=== PATIENT | female | born 1965 | race Caucasian/White ===

== ENCOUNTER 2020-09-04 17:27 | Inpatient (IN) | payer MEDICAID ==
[~2020-09-04] VITALS: Ht 157.5 cm; Wt 61.0 kg
[2020-09-04] MEDS ORDERED: BISACODYL 10 MG SUPP PR PRN (18:00)
[2020-09-04] MEDS ORDERED: POLYETHYLENE GLYCOL 17 GM PACKET PO PRN (18:00)
[2020-09-04] MEDS ORDERED: DOCUSATE 100 MG CAPSULE PO PRN (18:00)
[2020-09-04] MEDS ORDERED: ONDANSETRON ODT 4 MG PO PRN (18:00)
[2020-09-04] MEDS ORDERED: TRAZODONE 50MG TABLET PO SCH (21:00)
[2020-09-04] MEDS ORDERED: PLEASE ENTER HEIGHT AND WEIGHT MC SCH (21:30)
[2020-09-04] MEDS ORDERED: TRAZODONE 50MG TABLET ONE (21:45)
[2020-09-04] MEDS ORDERED: QUETIAPINE 25MG TABLET ONE (21:45)
[2020-09-04] MEDS: QUETIAPINE 25MG TABLET PO SCH (21:55)
[2020-09-04 22:30] LABS: MICROSCOPIC NOT IND
[2020-09-05 02:14] VITALS: BP 149/92
[2020-09-05] MEDS ORDERED: CETI-222 PO (03:19)
[2020-09-05] MEDS ORDERED: FERR325T5 PO (03:19)
[2020-09-05] MEDS ORDERED: AMLO-150 PO (03:19)
[2020-09-05] MEDS ORDERED: PROP10TA51 PO (03:19)
[2020-09-05] MEDS ORDERED: ERGO500017 PO (03:19)
[2020-09-05] MEDS ORDERED: METH-640 PO (03:19)
[2020-09-05] MEDS ORDERED: BUSP5TAB2 PO (03:19)
[2020-09-05] MEDS ORDERED: ATOR20TA86 PO (03:19)
[2020-09-05] MEDS ORDERED: BENZ100C PO (03:19)
[2020-09-05] MEDS ORDERED: LISI20TA21 PO (03:19)
[2020-09-05 06:24] LABS: BASOPHILS % (AUTO) 1 % (0-1); EOSINOPHILS % (AUTO) 4 % (1-7); LYMPHOCYTES % (AUTO) 17 % (22-44); MEAN CORPUSCULAR HEMOGLOBIN 27.7 pg (27.0-34.8); MEAN CORPUSCULAR HGB CONC 33.3 g/dL (32.4-35.8); MEAN PLATELET VOLUME 6.4 fL (7.4-10.4); MONOCYTES % (AUTO) 9 % (2-9); NEUTROPHILS % (AUTO) 69 % (42-75); PLATELET COUNT 556 x10^3/uL (130-400); RED BLOOD COUNT 3.52 x10^6/uL (3.82-5.3); RED CELL DISTRIBUTION WIDTH 14.8 % (9.6-15.2)
[2020-09-05 06:29] LABS: MD NO
[2020-09-05 06:37] LABS: CALCIUM 8.8 mg/dL (8.5-10.1)
[2020-09-05 06:49] LABS: ALANINE AMINOTRANSFERASE 16 U/L (12-78); ALBUMIN 2.5 g/dL (3.4-5.0); ALKALINE PHOSPHATASE 92 U/L (45-117); BILIRUBIN,TOTAL 0.2 mg/dL (0.2-1.0); CHOL/HDL RATIO 2.4; CHOLESTEROL, TOTAL 147 mg/dL (140-239); CREATININE 0.53 mg/dL (0.55-1.02); FREE T4 (FREE THYROXINE) 0.69 ng/dL (0.76-1.46); HDL CHOL % 42 % (28-40); HDL CHOLESTEROL (DIRECT) 62 mg/dL (40-60); LDL CHOLESTEROL,CALCULATED 62 mg/dL (54-169); TOTAL PROTEIN 6.8 g/dL (6.4-8.2); TRIGLYCERIDES 113 mg/dL (50-200); VLDL CHOLESTEROL 23 mg/dL (0-25)
[2020-09-05 07:13] LABS: ANION GAP 3 mmol/L (5-15); CHLORIDE 102 mmol/L (98-107)
[2020-09-05 07:30] VITALS: BP 126/75
[2020-09-05] MEDS: SERTRALINE 50MG TABLET PO SCH (08:00)
[2020-09-05] MEDS: FLUTICASONE/VILANTEROL 200-25MCG/INH INH SCH (08:01)
[2020-09-05] MEDS: TIOTROPIUM BROMIDE 18 MCG/INH INH SCH (08:01)
[2020-09-05] MEDS: ACETAMINOPHEN 325 MG TABLET PO PRN (18:24)
[2020-09-05 19:44] VITALS: BP 134/84
[2020-09-05 19:52] LABS: % IRON SATURATION 10 % (20-55); IRON LEVEL 31 mcg/dL (50-170); TOTAL IRON BINDING CAPACITY 319 mcg/dL (250-450)
[2020-09-05 19:54] LABS: TROPONIN I < 0.015 ng/mL (0.000-0.045)
[2020-09-05] MEDS ORDERED: ALBUTEROL HFA 90 MCG/SPRAY INH PRN (20:30)
[2020-09-05] MEDS: QUETIAPINE 25MG TABLET PO SCH (20:35)
[2020-09-05] MEDS: TRAZODONE 50MG TABLET PO SCH (20:35)
[2020-09-06 07:39] VITALS: BP 130/72
[2020-09-06] MEDS: SERTRALINE 50MG TABLET PO SCH (08:06)
[2020-09-06] MEDS: ATORVASTATIN 40 MG TABLET PO SCH (08:06)
[2020-09-06] MEDS: AMLODIPINE 10 MG TAB PO SCH (08:06)
[2020-09-06] MEDS: FLUTICASONE/VILANTEROL 200-25MCG/INH INH SCH (08:08)
[2020-09-06] MEDS: TIOTROPIUM BROMIDE 18 MCG/INH INH SCH (08:08)
[2020-09-06] MEDS: LISINOPRIL 20 MG TABLET PO SCH (08:10)
[2020-09-06] MEDS: LIDODERM 5% PATCH TD SCH (14:57)
[2020-09-06 19:41] VITALS: BP 130/84
[2020-09-06] MEDS: QUETIAPINE 25MG TABLET PO SCH (20:13)
[2020-09-06] MEDS: TRAZODONE 50MG TABLET PO SCH (20:14)
[2020-09-07 07:38] VITALS: BP 145/89
[2020-09-07] MEDS: FLUTICASONE/VILANTEROL 200-25MCG/INH INH SCH (07:54)
[2020-09-07] MEDS: TIOTROPIUM BROMIDE 18 MCG/INH INH SCH (07:54)
[2020-09-07] MEDS: AMLODIPINE 10 MG TAB PO SCH (07:55)
[2020-09-07] MEDS: LISINOPRIL 20 MG TABLET PO SCH (07:55)
[2020-09-07] MEDS: ATORVASTATIN 40 MG TABLET PO SCH (07:55)
[2020-09-07] MEDS: FERROUS SULFATE 325 MG TABLET PO SCH (07:55)
[2020-09-07] MEDS: SERTRALINE 50MG TABLET PO SCH (07:55)
[2020-09-07] MEDS: ACETAMINOPHEN 325 MG TABLET PO PRN (09:32)
[2020-09-07] MEDS: LIDODERM 5% PATCH TD SCH (13:33)
[2020-09-07] MEDS: LIDODERM REMOVE PATCH NOTE XX SCH (15:00)
[2020-09-07 19:50] VITALS: BP 127/80
[2020-09-07] MEDS: TRAZODONE 50MG TABLET PO SCH (20:27)
[2020-09-07] MEDS: QUETIAPINE 25MG TABLET PO SCH (20:27)
[2020-09-08] MEDS: LIDODERM REMOVE PATCH NOTE XX SCH ×2 (03:00→15:00)
[2020-09-08 07:31] VITALS: BP 125/81
[2020-09-08] MEDS: AMLODIPINE 10 MG TAB PO SCH (08:24)
[2020-09-08] MEDS: LISINOPRIL 20 MG TABLET PO SCH (08:24)
[2020-09-08] MEDS: ATORVASTATIN 40 MG TABLET PO SCH (08:24)
[2020-09-08] MEDS: SERTRALINE 50MG TABLET PO SCH (08:24)
[2020-09-08] MEDS: TIOTROPIUM BROMIDE 18 MCG/INH INH SCH (08:25)
[2020-09-08] MEDS: FLUTICASONE/VILANTEROL 200-25MCG/INH INH SCH (08:25)
[2020-09-08] MEDS: LIDODERM 5% PATCH TD SCH (16:16)
[2020-09-08] MEDS ORDERED: QUETIAPINE 25MG TABLET PO ONE (17:30)
[2020-09-08 19:40] VITALS: BP 113/76
[2020-09-08] MEDS: TRAZODONE 50MG TABLET PO SCH (20:41)
[2020-09-08] MEDS: QUETIAPINE 25MG TABLET PO SCH (20:42)
[2020-09-09] MEDS: LIDODERM REMOVE PATCH NOTE XX SCH ×2 (02:28→14:23)
[2020-09-09 07:30] VITALS: BP 122/82
[2020-09-09] MEDS: TIOTROPIUM BROMIDE 18 MCG/INH INH SCH (09:23)
[2020-09-09] MEDS: SERTRALINE 50MG TABLET PO SCH (09:23)
[2020-09-09] MEDS: FLUTICASONE/VILANTEROL 200-25MCG/INH INH SCH (09:23)
[2020-09-09] MEDS: LISINOPRIL 20 MG TABLET PO SCH (09:23)
[2020-09-09] MEDS: ATORVASTATIN 40 MG TABLET PO SCH (09:23)
[2020-09-09] MEDS: AMLODIPINE 10 MG TAB PO SCH (09:23)
[2020-09-09] MEDS: ACETAMINOPHEN 325 MG TABLET PO PRN ×2 (09:29→20:34)
[2020-09-09] MEDS: FERROUS SULFATE 325 MG TABLET PO SCH (09:29)
[2020-09-09] MEDS ORDERED: hydrOXyzine 50MG TABLET ONE (09:41)
[2020-09-09] MEDS: HYDROXYZINE PAMOATE 50MG CAP PO PRN ×2 (09:47→20:34)
[2020-09-09] MEDS: LIDODERM 5% PATCH TD SCH (14:20)
[2020-09-09 19:42] VITALS: BP 125/79
[2020-09-09] MEDS: QUETIAPINE 25MG TABLET PO SCH (20:34)
[2020-09-09] MEDS: TRAZODONE 50MG TABLET PO SCH (20:34)
[2020-09-10] MEDS: LIDODERM REMOVE PATCH NOTE XX SCH ×2 (03:00→15:00)
[2020-09-10 07:41] VITALS: BP 113/72
[2020-09-10] MEDS: FLUTICASONE/VILANTEROL 200-25MCG/INH INH SCH (08:41)
[2020-09-10] MEDS: LISINOPRIL 20 MG TABLET PO SCH (08:41)
[2020-09-10] MEDS: AMLODIPINE 10 MG TAB PO SCH (08:41)
[2020-09-10] MEDS: ATORVASTATIN 40 MG TABLET PO SCH (08:41)
[2020-09-10] MEDS: TIOTROPIUM BROMIDE 18 MCG/INH INH SCH ×2 (08:41→09:29)
[2020-09-10] MEDS: SERTRALINE 50MG TABLET PO SCH (08:42)
[2020-09-10] MEDS: ACETAMINOPHEN 325 MG TABLET PO PRN ×2 (09:30→14:54)
[2020-09-10] MEDS: HYDROXYZINE PAMOATE 50MG CAP PO PRN ×2 (09:30→16:28)
[2020-09-10] MEDS: LIDODERM 5% PATCH TD SCH (14:49)
[2020-09-10 19:26] VITALS: BP 124/79
[2020-09-10] MEDS: QUETIAPINE 25MG TABLET PO SCH (20:38)
[2020-09-10] MEDS: TRAZODONE 50MG TABLET PO SCH (20:39)
[2020-09-11] MEDS: LIDODERM REMOVE PATCH NOTE XX SCH (03:37)
[2020-09-11 07:47] VITALS: BP 117/75
[2020-09-11] MEDS: FERROUS SULFATE 325 MG TABLET PO SCH ×2 (08:35→15:30)
[2020-09-11] MEDS: TIOTROPIUM BROMIDE 18 MCG/INH INH SCH (08:35)
[2020-09-11] MEDS: FLUTICASONE/VILANTEROL 200-25MCG/INH INH SCH (08:35)
[2020-09-11] MEDS: ATORVASTATIN 40 MG TABLET PO SCH (08:35)
[2020-09-11] MEDS: SERTRALINE 100MG TABLET PO SCH (08:35)
[2020-09-11] MEDS: AMLODIPINE 10 MG TAB PO SCH (08:35)
[2020-09-11] MEDS: LISINOPRIL 20 MG TABLET PO SCH (08:35)
[2020-09-11] MEDS: HYDROXYZINE PAMOATE 50MG CAP PO PRN ×2 (09:15→20:21)
[2020-09-11] MEDS: ACETAMINOPHEN 325 MG TABLET PO PRN (12:52)
[2020-09-11] MEDS: LIDODERM 5% PATCH TD SCH (13:51)
[2020-09-11 20:09] VITALS: BP 111/70
[2020-09-11] MEDS: QUETIAPINE 25MG TABLET PO SCH (20:20)
[2020-09-11] MEDS: TRAZODONE 50MG TABLET PO SCH (20:21)
[2020-09-12] MEDS: LIDODERM REMOVE PATCH NOTE XX SCH (02:40)
[2020-09-12 07:31] VITALS: BP 100/68
[2020-09-12] MEDS: TIOTROPIUM BROMIDE 18 MCG/INH INH SCH (08:38)
[2020-09-12] MEDS: SERTRALINE 100MG TABLET PO SCH (08:39)
[2020-09-12] MEDS: AMLODIPINE 10 MG TAB PO SCH (08:39)
[2020-09-12] MEDS: FLUTICASONE/VILANTEROL 200-25MCG/INH INH SCH (08:39)
[2020-09-12] MEDS: FERROUS SULFATE 325 MG TABLET PO SCH (08:40)
[2020-09-12] MEDS: ATORVASTATIN 40 MG TABLET PO SCH (08:40)
[2020-09-12] MEDS: LISINOPRIL 20 MG TABLET PO SCH (08:40)
[2020-09-12] MEDS: HYDROXYZINE PAMOATE 50MG CAP PO PRN (09:01)
[2020-09-12] MEDS: ACETAMINOPHEN 325 MG TABLET PO PRN (12:55)
[2020-09-12] MEDS: LIDODERM 5% PATCH TD SCH (14:13)
[2020-09-12] MEDS ORDERED: NALOXONE 0.4 MG/ML, 1ML ONE (18:31)
[2020-09-12] MEDS ORDERED: NITROGLYCERIN 0.4 MG BOTTLE (25 TABS) SL ONE (18:31)
[2020-09-12 19:18] VITALS: BP 106/69
[2020-09-12] MEDS: TRAZODONE 50MG TABLET PO SCH (21:18)
[2020-09-12] MEDS: QUETIAPINE 25MG TABLET PO SCH (21:18)
[2020-09-13] MEDS: LIDODERM REMOVE PATCH NOTE XX SCH (03:05)
[2020-09-13 07:40] VITALS: BP 95/60
[2020-09-13 08:25] VITALS: BP 127/82
[2020-09-13] MEDS: AMLODIPINE 10 MG TAB PO SCH (08:32)
[2020-09-13] MEDS: LISINOPRIL 20 MG TABLET PO SCH (08:33)
[2020-09-13] MEDS: SERTRALINE 100MG TABLET PO SCH (08:33)
[2020-09-13] MEDS: FERROUS SULFATE 325 MG TABLET PO SCH (08:34)
[2020-09-13] MEDS: FLUTICASONE/VILANTEROL 200-25MCG/INH INH SCH (08:35)
[2020-09-13] MEDS: TIOTROPIUM BROMIDE 18 MCG/INH INH SCH (08:35)
[2020-09-13] MEDS: LIDODERM 5% PATCH TD SCH (14:53)
[2020-09-13] MEDS: HYDROXYZINE PAMOATE 50MG CAP PO PRN (14:56)
[2020-09-13 19:36] VITALS: BP 109/73
[2020-09-13] MEDS: ATORVASTATIN 40 MG TABLET PO SCH (20:35)
[2020-09-13] MEDS: TRAZODONE 50MG TABLET PO SCH (20:35)
[2020-09-13] MEDS: QUETIAPINE 25MG TABLET PO SCH (20:36)
[2020-09-14] MEDS: LIDODERM REMOVE PATCH NOTE XX SCH (03:02)
[2020-09-14 08:08] VITALS: BP 135/82
[2020-09-14] MEDS: AMLODIPINE 10 MG TAB PO SCH (08:11)
[2020-09-14] MEDS: FERROUS SULFATE 325 MG TABLET PO SCH (08:11)
[2020-09-14] MEDS: FLUTICASONE/VILANTEROL 200-25MCG/INH INH SCH (08:12)
[2020-09-14] MEDS: TIOTROPIUM BROMIDE 18 MCG/INH INH SCH (08:12)
[2020-09-14] MEDS: SERTRALINE 100MG TABLET PO SCH (08:12)
[2020-09-14] MEDS: LISINOPRIL 20 MG TABLET PO SCH (08:12)
[2020-09-14] MEDS: HYDROXYZINE PAMOATE 50MG CAP PO PRN ×4 (08:22→22:15)
[2020-09-14] MEDS: LIDODERM 5% PATCH TD SCH (15:07)
[2020-09-14 19:45] VITALS: BP 122/75
[2020-09-14] MEDS: ATORVASTATIN 40 MG TABLET PO SCH (20:56)
[2020-09-14] MEDS: TRAZODONE 50MG TABLET PO SCH (20:57)
[2020-09-14] MEDS: QUETIAPINE 25MG TABLET PO SCH (20:57)
[2020-09-15] MEDS: LIDODERM REMOVE PATCH NOTE XX SCH (03:00)
[2020-09-15 07:33] VITALS: BP 102/62
[2020-09-15] MEDS: SERTRALINE 100MG TABLET PO SCH (08:54)
[2020-09-15] MEDS: FERROUS SULFATE 325 MG TABLET PO SCH (08:54)
[2020-09-15] MEDS: AMLODIPINE 10 MG TAB PO SCH (08:54)
[2020-09-15] MEDS: LISINOPRIL 20 MG TABLET PO SCH (08:54)
[2020-09-15] MEDS: HYDROXYZINE PAMOATE 50MG CAP PO PRN ×3 (09:08→20:16)
[2020-09-15] MEDS: FLUTICASONE/VILANTEROL 200-25MCG/INH INH SCH (10:10)
[2020-09-15] MEDS: TIOTROPIUM BROMIDE 18 MCG/INH INH SCH (10:10)
[2020-09-15] MEDS: LIDODERM 5% PATCH TD SCH (13:53)
[2020-09-15] MEDS: FOLIC ACID 1 MG TABLET PO SCH (15:02)
[2020-09-15 19:33] VITALS: BP 100/64
[2020-09-15] MEDS: ATORVASTATIN 40 MG TABLET PO SCH (20:16)
[2020-09-15] MEDS: ACETAMINOPHEN 325 MG TABLET PO PRN (20:16)
[2020-09-15] MEDS: TRAZODONE 50MG TABLET PO SCH (20:16)
[2020-09-15] MEDS: QUETIAPINE 100MG TABLET PO SCH (20:17)
[2020-09-16] MEDS: LIDODERM REMOVE PATCH NOTE XX SCH (03:00)
[2020-09-16 07:41] VITALS: BP 129/86
[2020-09-16] MEDS: AMLODIPINE 10 MG TAB PO SCH (08:58)
[2020-09-16] MEDS: LISINOPRIL 20 MG TABLET PO SCH (08:58)
[2020-09-16] MEDS: FERROUS SULFATE 325 MG TABLET PO SCH (08:58)
[2020-09-16] MEDS: FOLIC ACID 1 MG TABLET PO SCH (08:58)
[2020-09-16] MEDS: HYDROXYZINE PAMOATE 50MG CAP PO PRN ×3 (08:58→20:41)
[2020-09-16] MEDS: FLUTICASONE/VILANTEROL 200-25MCG/INH INH SCH (09:00)
[2020-09-16] MEDS: TIOTROPIUM BROMIDE 18 MCG/INH INH SCH (09:00)
[2020-09-16] MEDS: SERTRALINE 100MG TABLET PO SCH (09:00)
[2020-09-16] MEDS: LIDODERM 5% PATCH TD SCH (14:29)
[2020-09-16 19:44] VITALS: BP 105/71
[2020-09-16] MEDS: NAPROXEN 500 MG TABLET PO SCH (20:35)
[2020-09-16] MEDS: TRAZODONE 50MG TABLET PO SCH (20:35)
[2020-09-16] MEDS: ATORVASTATIN 40 MG TABLET PO SCH (20:35)
[2020-09-16] MEDS: QUETIAPINE 100MG TABLET PO SCH (20:35)
[2020-09-17] MEDS: LIDODERM REMOVE PATCH NOTE XX SCH (03:00)
[2020-09-17 07:32] VITALS: BP 110/72
[2020-09-17] MEDS: SERTRALINE 100MG TABLET PO SCH (09:00)
[2020-09-17] MEDS: NAPROXEN 500 MG TABLET PO SCH ×2 (09:00→20:46)
[2020-09-17] MEDS: FOLIC ACID 1 MG TABLET PO SCH (09:16)
[2020-09-17] MEDS: FERROUS SULFATE 325 MG TABLET PO SCH (09:16)
[2020-09-17] MEDS: LISINOPRIL 20 MG TABLET PO SCH (09:17)
[2020-09-17] MEDS: AMLODIPINE 10 MG TAB PO SCH (09:17)
[2020-09-17] MEDS: HYDROXYZINE PAMOATE 50MG CAP PO PRN ×2 (09:22→20:46)
[2020-09-17] MEDS: FLUTICASONE/VILANTEROL 200-25MCG/INH INH SCH (10:35)
[2020-09-17] MEDS: TIOTROPIUM BROMIDE 18 MCG/INH INH SCH (10:35)
[2020-09-17] MEDS: LIDODERM 5% PATCH TD SCH (14:26)
[2020-09-17 20:02] VITALS: BP 112/32
[2020-09-17] MEDS: QUETIAPINE 100MG TABLET PO SCH (20:46)
[2020-09-17] MEDS: TRAZODONE 50MG TABLET PO SCH (20:46)
[2020-09-17] MEDS: ATORVASTATIN 40 MG TABLET PO SCH (20:47)
[2020-09-18] MEDS: LIDODERM REMOVE PATCH NOTE XX SCH (03:00)
[2020-09-18] MEDS: TIOTROPIUM BROMIDE 18 MCG/INH INH SCH (07:15)
[2020-09-18] MEDS: FLUTICASONE/VILANTEROL 200-25MCG/INH INH SCH (07:15)
[2020-09-18 07:32] VITALS: BP 116/73
[2020-09-18] MEDS: NAPROXEN 500 MG TABLET PO SCH ×2 (08:42→20:56)
[2020-09-18] MEDS: FERROUS SULFATE 325 MG TABLET PO SCH (08:42)
[2020-09-18] MEDS: FOLIC ACID 1 MG TABLET PO SCH (08:42)
[2020-09-18] MEDS: AMLODIPINE 10 MG TAB PO SCH (08:43)
[2020-09-18] MEDS: SERTRALINE 100MG TABLET PO SCH (08:43)
[2020-09-18] MEDS: LISINOPRIL 20 MG TABLET PO SCH (08:43)
[2020-09-18] MEDS: HYDROXYZINE PAMOATE 50MG CAP PO PRN ×2 (08:49→20:54)
[2020-09-18] MEDS: LIDODERM 5% PATCH TD SCH (14:44)
[2020-09-18 19:40] VITALS: BP 111/76
[2020-09-18] MEDS: ATORVASTATIN 40 MG TABLET PO SCH (20:55)
[2020-09-18] MEDS: QUETIAPINE 25MG TABLET PO SCH (20:56)
[2020-09-19] MEDS: LIDODERM REMOVE PATCH NOTE XX SCH (03:00)
[2020-09-19 07:40] VITALS: BP 147/85
[2020-09-19] MEDS: FLUTICASONE/VILANTEROL 200-25MCG/INH INH SCH (07:40)
[2020-09-19] MEDS: AMLODIPINE 10 MG TAB PO SCH (08:44)
[2020-09-19] MEDS: SERTRALINE 100MG TABLET PO SCH (08:44)
[2020-09-19] MEDS: LISINOPRIL 20 MG TABLET PO SCH (08:44)
[2020-09-19] MEDS: NAPROXEN 500 MG TABLET PO SCH ×2 (08:45→20:56)
[2020-09-19] MEDS: FOLIC ACID 1 MG TABLET PO SCH (08:45)
[2020-09-19] MEDS: FERROUS SULFATE 325 MG TABLET PO SCH (08:45)
[2020-09-19] MEDS: HYDROXYZINE PAMOATE 50MG CAP PO PRN ×2 (08:56→20:33)
[2020-09-19] MEDS: TIOTROPIUM BROMIDE 18 MCG/INH INH SCH (09:00)
[2020-09-19] MEDS: LIDODERM 5% PATCH TD SCH (14:46)
[2020-09-19 19:28] VITALS: BP 126/77
[2020-09-19] MEDS ORDERED: QUETIAPINE 100MG TABLET ONE (20:31)
[2020-09-19] MEDS: ATORVASTATIN 40 MG TABLET PO SCH (20:33)
[2020-09-19] MEDS: QUETIAPINE 25MG TABLET PO SCH (20:56)
[2020-09-20] MEDS: LIDODERM REMOVE PATCH NOTE XX SCH (03:07)
[2020-09-20 08:15] VITALS: BP 130/76
[2020-09-20] MEDS: FOLIC ACID 1 MG TABLET PO SCH (08:30)
[2020-09-20] MEDS: SERTRALINE 100MG TABLET PO SCH (08:30)
[2020-09-20] MEDS: NAPROXEN 500 MG TABLET PO SCH ×2 (08:31→20:50)
[2020-09-20] MEDS: LISINOPRIL 20 MG TABLET PO SCH (08:31)
[2020-09-20] MEDS: FERROUS SULFATE 325 MG TABLET PO SCH (08:31)
[2020-09-20] MEDS: AMLODIPINE 10 MG TAB PO SCH (08:31)
[2020-09-20] MEDS: HYDROXYZINE PAMOATE 50MG CAP PO PRN ×2 (09:09→20:50)
[2020-09-20] MEDS: FLUTICASONE/VILANTEROL 200-25MCG/INH INH SCH (11:05)
[2020-09-20] MEDS: TIOTROPIUM BROMIDE 18 MCG/INH INH SCH (11:10)
[2020-09-20] MEDS: LIDODERM 5% PATCH TD SCH (14:02)
[2020-09-20 19:23] VITALS: BP 117/82
[2020-09-20] MEDS: ATORVASTATIN 40 MG TABLET PO SCH (20:50)
[2020-09-20] MEDS: QUETIAPINE 25MG TABLET PO SCH (20:50)
[2020-09-21] MEDS: LIDODERM REMOVE PATCH NOTE XX SCH (03:00)
[2020-09-21] MEDS: FLUTICASONE/VILANTEROL 200-25MCG/INH INH SCH (07:26)
[2020-09-21] MEDS: TIOTROPIUM BROMIDE 18 MCG/INH INH SCH (07:26)
[2020-09-21 07:52] VITALS: BP 136/79
[2020-09-21] MEDS: NAPROXEN 500 MG TABLET PO SCH ×2 (09:00→20:21)
[2020-09-21] MEDS: LISINOPRIL 20 MG TABLET PO SCH (09:00)
[2020-09-21] MEDS: SERTRALINE 100MG TABLET PO SCH (09:01)
[2020-09-21] MEDS: FERROUS SULFATE 325 MG TABLET PO SCH (09:02)
[2020-09-21] MEDS: AMLODIPINE 10 MG TAB PO SCH (09:02)
[2020-09-21] MEDS: FOLIC ACID 1 MG TABLET PO SCH (09:02)
[2020-09-21] MEDS: HYDROXYZINE PAMOATE 50MG CAP PO PRN ×2 (09:16→20:25)
[2020-09-21] MEDS ORDERED: ALBU18HF INH (13:14)
[2020-09-21] MEDS ORDERED: NAPR-856 PO (13:14)
[2020-09-21] MEDS ORDERED: SERT100T32 PO (13:14)
[2020-09-21] MEDS ORDERED: QUET25TA7 PO (13:14)
[2020-09-21] MEDS ORDERED: AMLO-211 PO (13:14)
[2020-09-21] MEDS ORDERED: FLUT1BLS INH (13:14)
[2020-09-21] MEDS ORDERED: ATOR40TA78 PO (13:14)
[2020-09-21] MEDS ORDERED: FOLI1TAB32 PO (13:14)
[2020-09-21] MEDS ORDERED: TIOT18CA INH (13:14)
[2020-09-21] MEDS ORDERED: LISI-170 PO (13:14)
[2020-09-21] MEDS ORDERED: FERR-51 PO (13:14)
[2020-09-21] MEDS: LIDODERM 5% PATCH TD SCH (14:23)
[2020-09-21 19:22] VITALS: BP 134/84
[2020-09-21] MEDS: ATORVASTATIN 40 MG TABLET PO SCH (20:21)
[2020-09-21] MEDS: QUETIAPINE 25MG TABLET PO SCH (20:22)
[2020-09-22] MEDS: LIDODERM REMOVE PATCH NOTE XX SCH (03:00)
[2020-09-22 07:51] VITALS: BP 147/89
[2020-09-22] MEDS: FOLIC ACID 1 MG TABLET PO SCH (08:26)
[2020-09-22] MEDS: LISINOPRIL 20 MG TABLET PO SCH (08:27)
[2020-09-22] MEDS: AMLODIPINE 10 MG TAB PO SCH (08:27)
[2020-09-22] MEDS: HYDROXYZINE PAMOATE 50MG CAP PO PRN (08:27)
[2020-09-22] MEDS: FERROUS SULFATE 325 MG TABLET PO SCH (08:27)
[2020-09-22] MEDS: NAPROXEN 500 MG TABLET PO SCH (08:29)
[2020-09-22] MEDS: SERTRALINE 100MG TABLET PO SCH (08:29)
== END 2020-09-22 09:39 | disposition home or self-care (01) | DRG 885 ==
LOC: 3E 21:08
PROVIDERS: ADMIT Psychiatry & Neurology Psychosomatic Medicine; ATTEND Psychiatry & Neurology Psychosomatic Medicine
DX: F33.2 Major depressive disorder, recurrent severe without psychotic features (principal); R45.851 Suicidal ideations; J96.11 Chronic respiratory failure with hypoxia; Z88.6 Allergy status to analgesic agent; Z79.899 Other long term (current) drug therapy; Z80.8 Family history of malignant neoplasm of other organs or systems; J44.9 Chronic obstructive pulmonary disease, unspecified; G47.00 Insomnia, unspecified; D64.9 Anemia, unspecified; D72.829 Elevated white blood cell count, unspecified; E78.5 Hyperlipidemia, unspecified; F41.9 Anxiety disorder, unspecified; G43.909 Migraine, unspecified, not intractable, without status migrainosus; I10 Essential (primary) hypertension; Z87.01 Personal history of pneumonia (recurrent); Z87.891 Personal history of nicotine dependence; Z99.81 Dependence on supplemental oxygen
CPT/HCPCS: 36415; 80053; 80061; 81003; 83540; 83550; 84439; 84443; 84484; 85025; 93005; 94640; J2310

== ENCOUNTER 2020-09-22 17:56 | Inpatient (IN) | payer MEDICAID ==
[~2020-09-22] VITALS: Ht 157.5 cm; Wt 66.5 kg
[~2020-09-22 17:56] MED LIST: ALBU18HF INH; AMLO-150 PO; AMLO-211 PO; ATOR20TA86 PO; ATOR40TA78 PO; BENZ100C PO; BUSP5TAB2 PO; CETI-222 PO; ERGO500017 PO; FERR-51 PO; FERR325T5 PO; FLUT1BLS INH; FOLI1TAB32 PO; LISI-170 PO; LISI20TA21 PO; METH-640 PO; NAPR-856 PO; PROP10TA51 PO; QUET25TA7 PO; SERT100T32 PO; TIOT18CA INH
--- NOTE | 2020-09-22 19:04 | NUR ---
PT IS HERE STATING SHE WAS DISCHARGED TODAY WITHOUT OXYGEN WAITING FOR HER AT LOCATION SHE WAS AT AND FEELS SHE NEEDS IT.
--- NOTE | 2020-09-22 19:07 | NUR ---
DIRECTOR CARDIAC IS AT BEDSIDE WITH PATIENT.
--- NOTE | 2020-09-22 19:17 | NUR ---
AFTER AMBULATION TO THE BATHROOM PT'S SP02 WAS 78.
--- NOTE | 2020-09-22 19:48 | NUR ---
SPO2 76% RA WHILE AMBULATING FOR 2 MINUTES.
--- NOTE | 2020-09-22 19:50 | NUR ---
SPO2 95% ON 2L NC.
[2020-09-22] MEDS: PROPRANOLOL 20 MG TABLET PO SCH (21:00)
--- NOTE | 2020-09-22 21:18 | NUR ---
REPORT GIVEN TO AZEEM MERRILL.
[2020-09-22 21:28] VITALS: BP 152/95
[2020-09-22] MEDS ORDERED: PROPRANOLOL 10 MG TABLET ONE (22:00)
[2020-09-22] MEDS: NAPROXEN 500 MG TABLET PO SCH (22:04)
[2020-09-22] MEDS: BUSPIRONE 5 MG TABLET PO SCH (22:05)
[2020-09-22] MEDS: QUETIAPINE 100MG TABLET PO SCH (22:06)
[2020-09-23 00:01] VITALS: BP_SYST 127; BP_SYST 94; BP_DIAS 59; BP_DIAS 67
[2020-09-23] MEDS: ACETAMINOPHEN 325 MG TABLET PO PRN ×3 (01:37→19:54)
[2020-09-23 07:00] VITALS: BP 125/75
[2020-09-23] MEDS: FLUTICASONE/VILANTEROL 200-25MCG/INH INH SCH (07:00)
[2020-09-23] MEDS: TIOTROPIUM BROMIDE 18 MCG/INH INH SCH (07:00)
[2020-09-23] MEDS: SERTRALINE 100MG TABLET PO SCH (08:29)
[2020-09-23] MEDS: FOLIC ACID 1 MG TABLET PO SCH (08:30)
[2020-09-23] MEDS: ATORVASTATIN 40 MG TABLET PO SCH (08:30)
[2020-09-23] MEDS: AMLODIPINE 10 MG TAB PO SCH (08:30)
[2020-09-23] MEDS: CETIRIZINE 10 MG TABLET PO SCH (08:30)
[2020-09-23] MEDS: PROPRANOLOL 20 MG TABLET PO SCH ×2 (08:30→19:54)
[2020-09-23] MEDS: FERROUS SULFATE 325 MG TABLET PO SCH (08:30)
[2020-09-23] MEDS: BUSPIRONE 5 MG TABLET PO SCH ×2 (08:30→19:53)
[2020-09-23] MEDS: NAPROXEN 500 MG TABLET PO SCH ×2 (08:31→19:53)
[2020-09-23] MEDS: LISINOPRIL 20 MG TABLET PO SCH (08:31)
[2020-09-23 14:41] VITALS: BP 134/82
[2020-09-23 19:01] VITALS: BP 129/82
[2020-09-23] MEDS: QUETIAPINE 100MG TABLET PO SCH (19:54)
[2020-09-24 01:33] VITALS: BP 101/63
[2020-09-24 06:49] VITALS: BP 136/76
[2020-09-24] MEDS: FLUTICASONE/VILANTEROL 200-25MCG/INH INH SCH (06:58)
[2020-09-24] MEDS: ALBUTEROL HFA 90 MCG/SPRAY INH PRN (06:58)
[2020-09-24] MEDS: TIOTROPIUM BROMIDE 18 MCG/INH INH SCH ×2 (06:58→07:45)
[2020-09-24] MEDS: NAPROXEN 500 MG TABLET PO SCH ×2 (09:00→20:16)
[2020-09-24] MEDS: SERTRALINE 100MG TABLET PO SCH (09:00)
[2020-09-24] MEDS: CETIRIZINE 10 MG TABLET PO SCH (09:20)
[2020-09-24] MEDS: AMLODIPINE 10 MG TAB PO SCH (09:20)
[2020-09-24] MEDS: ATORVASTATIN 40 MG TABLET PO SCH (09:21)
[2020-09-24] MEDS: FOLIC ACID 1 MG TABLET PO SCH (09:21)
[2020-09-24] MEDS: FERROUS SULFATE 325 MG TABLET PO SCH (09:21)
[2020-09-24] MEDS: LISINOPRIL 20 MG TABLET PO SCH (09:21)
[2020-09-24] MEDS: PROPRANOLOL 20 MG TABLET PO SCH ×2 (09:21→20:15)
[2020-09-24] MEDS: BUSPIRONE 5 MG TABLET PO SCH ×2 (09:21→20:15)
[2020-09-24] MEDS ORDERED: SODIUM CHLORIDE NASAL SPRAY 45ML BOTTLE NAS PRN (10:30)
[2020-09-24 12:43] VITALS: BP 135/83
[2020-09-24] MEDS ORDERED: LORazepam 1MG TABLET PO ONE (14:30)
[2020-09-24] MEDS: LORazepam 0.5MG TABLET PO PRN (18:14)
[2020-09-24 19:57] VITALS: BP 121/80
[2020-09-24] MEDS: QUETIAPINE 100MG TABLET PO SCH (20:16)
[2020-09-24 20:38] VITALS: BP 128/86
[2020-09-24] MEDS ORDERED: MORPHINE SULFATE 4 MG/ML, 1ML IV ONE (21:00)
[2020-09-24 21:02] LABS: TROPONIN I < 0.015 ng/mL (0.000-0.045)
[2020-09-25] VITALS (7 sets, daily range): BP systolic 103–147; BP diastolic 67–88
[2020-09-25] MEDS: TIOTROPIUM BROMIDE 18 MCG/INH INH SCH (07:43)
[2020-09-25] MEDS: FLUTICASONE/VILANTEROL 200-25MCG/INH INH SCH (07:43)
[2020-09-25 07:54] LABS: TROPONIN I < 0.015 ng/mL (0.000-0.045)
[2020-09-25] MEDS: NAPROXEN 500 MG TABLET PO SCH (09:00)
[2020-09-25] MEDS: SERTRALINE 100MG TABLET PO SCH (09:00)
[2020-09-25] MEDS: PROPRANOLOL 20 MG TABLET PO SCH ×2 (09:02→20:16)
[2020-09-25] MEDS: ATORVASTATIN 40 MG TABLET PO SCH (09:02)
[2020-09-25] MEDS: FOLIC ACID 1 MG TABLET PO SCH (09:02)
[2020-09-25] MEDS: LISINOPRIL 20 MG TABLET PO SCH (09:03)
[2020-09-25] MEDS: BUSPIRONE 5 MG TABLET PO SCH ×2 (09:03→20:16)
[2020-09-25] MEDS: FERROUS SULFATE 325 MG TABLET PO SCH (09:03)
[2020-09-25] MEDS: AMLODIPINE 10 MG TAB PO SCH (09:03)
[2020-09-25] MEDS: LORazepam 0.5MG TABLET PO PRN ×2 (09:03→17:08)
[2020-09-25] MEDS: CETIRIZINE 10 MG TABLET PO SCH (09:03)
[2020-09-25] MEDS: ASPIRIN 81 MG TABLET EC PO SCH (12:37)
[2020-09-25] MEDS: ACETAMINOPHEN 325 MG TABLET PO PRN (12:37)
[2020-09-25 13:09] LABS: TROPONIN I < 0.015 ng/mL (0.000-0.045)
[2020-09-25] MEDS ORDERED: NITROGLYCERIN 0.4 MG BOTTLE (25 TABS) SL ONE (13:30)
[2020-09-25] MEDS: METHOCARBAMOL 750 MG TABLET PO PRN ×2 (14:10→22:37)
[2020-09-25 17:27] LABS: TROPONIN I < 0.015 ng/mL (0.000-0.045)
[2020-09-25] MEDS: QUETIAPINE 100MG TABLET PO SCH (20:17)
[2020-09-25] MEDS ORDERED: OMNIPAQUE 350 MG/ML, 75ML BOTTLE ONE (22:27)
[2020-09-26 00:04] VITALS: BP 122/80
[2020-09-26 05:10] LABS: BASOPHILS % (AUTO) 1 % (0-1)
[2020-09-26 05:14] LABS: EOSINOPHILS % (AUTO) 5 % (1-7); LYMPHOCYTES % (AUTO) 28 % (22-44); MEAN CORPUSCULAR HEMOGLOBIN 27.7 pg (27.0-34.8); MEAN CORPUSCULAR HGB CONC 32.6 g/dL (32.4-35.8); MEAN PLATELET VOLUME 7.4 fL (7.4-10.4); MONOCYTES % (AUTO) 12 % (2-9); NEUTROPHILS % (AUTO) 55 % (42-75); PLATELET COUNT 404 x10^3/uL (130-400); RED BLOOD COUNT 3.82 x10^6/uL (3.82-5.3); RED CELL DISTRIBUTION WIDTH 16.3 % (9.6-15.2)
[2020-09-26 05:21] LABS: ALBUMIN 3.3 g/dL (3.4-5.0); ANION GAP 6 mmol/L (5-15); CHLORIDE 105 mmol/L (98-107)
[2020-09-26 05:25] LABS: ALANINE AMINOTRANSFERASE 16 U/L (12-78); ALKALINE PHOSPHATASE 92 U/L (45-117); BILIRUBIN,TOTAL 0.4 mg/dL (0.2-1.0); CREATININE 0.63 mg/dL (0.55-1.02); TOTAL PROTEIN 6.7 g/dL (6.4-8.2)
[2020-09-26 05:52] LABS: MD SCAN
[2020-09-26 06:58] VITALS: BP 135/82
[2020-09-26] MEDS: AMLODIPINE 10 MG TAB PO SCH (08:00)
[2020-09-26] MEDS: SERTRALINE 100MG TABLET PO SCH (08:00)
[2020-09-26] MEDS: ASPIRIN 81 MG TABLET EC PO SCH (08:01)
[2020-09-26] MEDS: CETIRIZINE 10 MG TABLET PO SCH (08:01)
[2020-09-26] MEDS: ATORVASTATIN 40 MG TABLET PO SCH (08:01)
[2020-09-26] MEDS: PROPRANOLOL 20 MG TABLET PO SCH ×2 (08:01→20:09)
[2020-09-26] MEDS: BUSPIRONE 5 MG TABLET PO SCH ×2 (08:01→20:09)
[2020-09-26] MEDS: LISINOPRIL 20 MG TABLET PO SCH (08:06)
[2020-09-26] MEDS ORDERED: REGADENOSON 0.4 MG/5 ML SYRINGE ONE (08:38)
[2020-09-26] MEDS: METHOCARBAMOL 750 MG TABLET PO PRN ×3 (10:54→22:34)
[2020-09-26] MEDS: FOLIC ACID 1 MG TABLET PO SCH (11:36)
[2020-09-26] MEDS: FERROUS SULFATE 325 MG TABLET PO SCH (11:36)
[2020-09-26] MEDS: LORazepam 0.5MG TABLET PO PRN ×2 (12:04→16:32)
[2020-09-26] MEDS: TIOTROPIUM BROMIDE 18 MCG/INH INH SCH (12:07)
[2020-09-26] MEDS: FLUTICASONE/VILANTEROL 200-25MCG/INH INH SCH (12:07)
[2020-09-26] MEDS ORDERED: ASPI81TA45 PO (12:20)
[2020-09-26 13:30] VITALS: BP 135/85
[2020-09-26] MEDS: ACETAMINOPHEN 325 MG TABLET PO PRN (13:49)
[2020-09-26 16:41] VITALS: BP 109/73
[2020-09-26 19:22] VITALS: BP 114/81
[2020-09-26] MEDS: QUETIAPINE 100MG TABLET PO SCH (20:09)
[2020-09-27 03:00] VITALS: BP 138/80
[2020-09-27 07:11] VITALS: BP 126/80
[2020-09-27] MEDS: FLUTICASONE/VILANTEROL 200-25MCG/INH INH SCH (07:53)
[2020-09-27] MEDS: TIOTROPIUM BROMIDE 18 MCG/INH INH SCH (07:53)
[2020-09-27] MEDS: ASPIRIN 81 MG TABLET EC PO SCH (07:56)
[2020-09-27] MEDS: CETIRIZINE 10 MG TABLET PO SCH (07:56)
[2020-09-27] MEDS: FOLIC ACID 1 MG TABLET PO SCH (07:57)
[2020-09-27] MEDS: ATORVASTATIN 40 MG TABLET PO SCH (07:57)
[2020-09-27] MEDS: AMLODIPINE 10 MG TAB PO SCH (07:57)
[2020-09-27] MEDS: BUSPIRONE 5 MG TABLET PO SCH ×2 (07:57→20:39)
[2020-09-27] MEDS: FERROUS SULFATE 325 MG TABLET PO SCH (07:57)
[2020-09-27] MEDS: LISINOPRIL 20 MG TABLET PO SCH (07:57)
[2020-09-27] MEDS: PROPRANOLOL 20 MG TABLET PO SCH ×2 (07:57→20:39)
[2020-09-27] MEDS: SERTRALINE 100MG TABLET PO SCH (07:58)
[2020-09-27] MEDS: LORazepam 0.5MG TABLET PO PRN ×2 (08:00→19:29)
[2020-09-27] MEDS: METHOCARBAMOL 750 MG TABLET PO PRN ×2 (08:08→16:00)
[2020-09-27] MEDS: ACETAMINOPHEN 325 MG TABLET PO PRN ×3 (11:39→20:43)
[2020-09-27 13:18] VITALS: BP 128/79
[2020-09-27 19:23] VITALS: BP 138/87
[2020-09-27] MEDS: QUETIAPINE 100MG TABLET PO SCH (20:39)
[2020-09-28 06:56] VITALS: BP 151/96
[2020-09-28] MEDS: METHOCARBAMOL 750 MG TABLET PO PRN ×2 (07:33→18:32)
[2020-09-28] MEDS: PROPRANOLOL 20 MG TABLET PO SCH ×2 (07:33→19:47)
[2020-09-28] MEDS: LORazepam 0.5MG TABLET PO PRN ×2 (07:33→19:47)
[2020-09-28] MEDS: ASPIRIN 81 MG TABLET EC PO SCH (07:33)
[2020-09-28] MEDS: BUSPIRONE 5 MG TABLET PO SCH ×2 (07:34→19:47)
[2020-09-28] MEDS: LISINOPRIL 20 MG TABLET PO SCH (07:34)
[2020-09-28] MEDS: CETIRIZINE 10 MG TABLET PO SCH (07:34)
[2020-09-28] MEDS: FERROUS SULFATE 325 MG TABLET PO SCH (07:34)
[2020-09-28] MEDS: FOLIC ACID 1 MG TABLET PO SCH (07:34)
[2020-09-28] MEDS: ATORVASTATIN 40 MG TABLET PO SCH (07:34)
[2020-09-28] MEDS: AMLODIPINE 10 MG TAB PO SCH (07:34)
[2020-09-28] MEDS: SERTRALINE 100MG TABLET PO SCH (07:35)
[2020-09-28] MEDS: ACETAMINOPHEN 325 MG TABLET PO PRN ×3 (07:39→19:47)
[2020-09-28] MEDS: FLUTICASONE/VILANTEROL 200-25MCG/INH INH SCH (09:00)
[2020-09-28] MEDS: TIOTROPIUM BROMIDE 18 MCG/INH INH SCH (09:00)
[2020-09-28] MEDS ORDERED: LIDODERM 5% PATCH TD SCH (10:30)
[2020-09-28 13:23] VITALS: BP 128/75
[2020-09-28] MEDS ORDERED: CYCLOBENZAPRINE 10 MG TABLET PO SCH (16:00)
[2020-09-28 19:28] VITALS: BP 131/82
[2020-09-28] MEDS: QUETIAPINE 100MG TABLET PO SCH (19:48)
[2020-09-28] MEDS ORDERED: LIDODERM REMOVE PATCH NOTE XX SCH (21:00)
[2020-09-29 02:04] VITALS: BP 126/79
[2020-09-29 07:02] VITALS: BP 152/94
[2020-09-29] MEDS: SERTRALINE 100MG TABLET PO SCH (09:00)
[2020-09-29] MEDS: FLUTICASONE/VILANTEROL 200-25MCG/INH INH SCH (09:35)
[2020-09-29] MEDS: TIOTROPIUM BROMIDE 18 MCG/INH INH SCH (09:35)
[2020-09-29] MEDS: AMLODIPINE 10 MG TAB PO SCH (10:01)
[2020-09-29] MEDS: ASPIRIN 81 MG TABLET EC PO SCH (10:01)
[2020-09-29] MEDS: FERROUS SULFATE 325 MG TABLET PO SCH (10:01)
[2020-09-29] MEDS: HYDROcodone/APAP 5/325 TABLET PO PRN ×2 (10:02→22:15)
[2020-09-29] MEDS: CETIRIZINE 10 MG TABLET PO SCH (10:02)
[2020-09-29] MEDS: PROPRANOLOL 20 MG TABLET PO SCH ×2 (10:03→20:02)
[2020-09-29] MEDS: FOLIC ACID 1 MG TABLET PO SCH (10:03)
[2020-09-29] MEDS: BUSPIRONE 5 MG TABLET PO SCH ×2 (10:03→20:02)
[2020-09-29] MEDS: LORazepam 0.5MG TABLET PO PRN ×2 (10:04→22:15)
[2020-09-29] MEDS: LISINOPRIL 20 MG TABLET PO SCH (10:04)
[2020-09-29] MEDS: ATORVASTATIN 40 MG TABLET PO SCH (10:04)
[2020-09-29 12:33] VITALS: BP 132/85
[2020-09-29] MEDS: ACETAMINOPHEN 325 MG TABLET PO PRN ×2 (13:22→19:01)
[2020-09-29 19:21] VITALS: BP 111/72
[2020-09-29 20:01] VITALS: BP 122/82
[2020-09-29] MEDS: QUETIAPINE 100MG TABLET PO SCH (20:03)
[2020-09-30 01:13] VITALS: BP 91/61
[2020-09-30] MEDS: TIOTROPIUM BROMIDE 18 MCG/INH INH SCH (06:45)
[2020-09-30] MEDS: FLUTICASONE/VILANTEROL 200-25MCG/INH INH SCH (06:45)
[2020-09-30 07:17] VITALS: BP 133/83
[2020-09-30] MEDS: BUSPIRONE 5 MG TABLET PO SCH ×2 (09:00→20:41)
[2020-09-30] MEDS ORDERED: AMLODIPINE 5 MG TABLET PO SCH (09:00)
[2020-09-30] MEDS: ASPIRIN 81 MG TABLET EC PO SCH (09:00)
[2020-09-30] MEDS: SERTRALINE 100MG TABLET PO SCH (09:00)
[2020-09-30] MEDS: FOLIC ACID 1 MG TABLET PO SCH (09:02)
[2020-09-30] MEDS: PROPRANOLOL 20 MG TABLET PO SCH ×2 (09:02→20:41)
[2020-09-30] MEDS: LISINOPRIL 10 MG TABLET PO SCH (09:02)
[2020-09-30] MEDS: CETIRIZINE 10 MG TABLET PO SCH (09:03)
[2020-09-30] MEDS: ATORVASTATIN 40 MG TABLET PO SCH (09:03)
[2020-09-30] MEDS: FERROUS SULFATE 325 MG TABLET PO SCH (09:03)
[2020-09-30] MEDS: HYDROcodone/APAP 5/325 TABLET PO PRN ×2 (11:51→20:41)
[2020-09-30] MEDS: LORazepam 0.5MG TABLET PO PRN (11:52)
[2020-09-30 14:23] VITALS: BP 133/78
[2020-09-30 19:45] VITALS: BP 118/79
[2020-09-30 20:40] VITALS: BP 134/76
[2020-09-30] MEDS: QUETIAPINE 100MG TABLET PO SCH (20:40)
[2020-10-01 00:20] VITALS: BP 93/59
[2020-10-01] MEDS: TIOTROPIUM BROMIDE 18 MCG/INH INH SCH (08:00)
[2020-10-01] MEDS: FLUTICASONE/VILANTEROL 200-25MCG/INH INH SCH (08:00)
[2020-10-01 08:49] VITALS: BP 132/84
[2020-10-01] MEDS: ASPIRIN 81 MG TABLET EC PO SCH (09:00)
[2020-10-01] MEDS: SERTRALINE 100MG TABLET PO SCH (09:00)
[2020-10-01] MEDS: ATORVASTATIN 40 MG TABLET PO SCH (10:04)
[2020-10-01] MEDS: FOLIC ACID 1 MG TABLET PO SCH (10:04)
[2020-10-01] MEDS: LISINOPRIL 10 MG TABLET PO SCH (10:05)
[2020-10-01] MEDS: PROPRANOLOL 20 MG TABLET PO SCH ×2 (10:05→20:01)
[2020-10-01] MEDS: LORazepam 0.5MG TABLET PO PRN ×3 (10:06→18:50)
[2020-10-01] MEDS: BUSPIRONE 5 MG TABLET PO SCH ×2 (10:06→20:01)
[2020-10-01] MEDS: CETIRIZINE 10 MG TABLET PO SCH (10:06)
[2020-10-01] MEDS: FERROUS SULFATE 325 MG TABLET PO SCH (10:06)
[2020-10-01] MEDS: HYDROcodone/APAP 5/325 TABLET PO PRN ×2 (10:08→17:46)
[2020-10-01 10:15] VITALS: BP 118/80
[2020-10-01 12:15] VITALS: BP 115/69
[2020-10-01 19:13] VITALS: BP 125/73
[2020-10-01 19:59] VITALS: BP 119/74
[2020-10-01] MEDS: QUETIAPINE 100MG TABLET PO SCH (20:01)
[2020-10-02 00:39] VITALS: BP 99/60
[2020-10-02 07:55] VITALS: BP 130/73
[2020-10-02] MEDS: FLUTICASONE/VILANTEROL 200-25MCG/INH INH SCH ×2 (09:08→09:33)
[2020-10-02] MEDS: ASPIRIN 81 MG TABLET EC PO SCH (09:29)
[2020-10-02] MEDS: BUSPIRONE 5 MG TABLET PO SCH ×2 (09:29→20:31)
[2020-10-02] MEDS: PROPRANOLOL 20 MG TABLET PO SCH ×2 (09:29→20:31)
[2020-10-02] MEDS: CETIRIZINE 10 MG TABLET PO SCH (09:29)
[2020-10-02] MEDS: LISINOPRIL 10 MG TABLET PO SCH (09:29)
[2020-10-02] MEDS: FOLIC ACID 1 MG TABLET PO SCH (09:29)
[2020-10-02] MEDS: FERROUS SULFATE 325 MG TABLET PO SCH (09:30)
[2020-10-02] MEDS: SERTRALINE 100MG TABLET PO SCH (09:30)
[2020-10-02] MEDS: ATORVASTATIN 40 MG TABLET PO SCH (09:30)
[2020-10-02] MEDS: HYDROcodone/APAP 5/325 TABLET PO PRN ×2 (09:31→19:37)
[2020-10-02] MEDS: TIOTROPIUM BROMIDE 18 MCG/INH INH SCH (09:33)
[2020-10-02] MEDS: LORazepam 0.5MG TABLET PO PRN ×2 (10:35→21:52)
[2020-10-02] MEDS: ACETAMINOPHEN 325 MG TABLET PO PRN (12:30)
[2020-10-02 14:15] VITALS: BP 110/72
[2020-10-02 18:58] VITALS: BP 122/78
[2020-10-02 20:29] VITALS: BP 117/78
[2020-10-02] MEDS: QUETIAPINE 100MG TABLET PO SCH (20:31)
[2020-10-03 00:36] VITALS: BP 99/64
[2020-10-03 07:45] VITALS: BP 123/76
[2020-10-03] MEDS: HYDROcodone/APAP 5/325 TABLET PO PRN ×2 (08:54→17:02)
[2020-10-03] MEDS: SERTRALINE 100MG TABLET PO SCH (08:55)
[2020-10-03] MEDS: BUSPIRONE 5 MG TABLET PO SCH ×2 (08:55→20:27)
[2020-10-03] MEDS: LISINOPRIL 10 MG TABLET PO SCH (08:55)
[2020-10-03] MEDS: PROPRANOLOL 20 MG TABLET PO SCH ×2 (08:57→20:30)
[2020-10-03] MEDS: FERROUS SULFATE 325 MG TABLET PO SCH (08:57)
[2020-10-03] MEDS: ASPIRIN 81 MG TABLET EC PO SCH (08:57)
[2020-10-03] MEDS: ATORVASTATIN 40 MG TABLET PO SCH (08:57)
[2020-10-03] MEDS: CETIRIZINE 10 MG TABLET PO SCH (08:58)
[2020-10-03] MEDS: FOLIC ACID 1 MG TABLET PO SCH (08:58)
[2020-10-03] MEDS: TIOTROPIUM BROMIDE 18 MCG/INH INH SCH (09:00)
[2020-10-03] MEDS: FLUTICASONE/VILANTEROL 200-25MCG/INH INH SCH (09:00)
[2020-10-03 10:58] LABS: BASOPHILS % (AUTO) 1 % (0-1); EOSINOPHILS % (AUTO) 4 % (1-7); LYMPHOCYTES % (AUTO) 19 % (22-44); MEAN CORPUSCULAR HGB CONC 32.9 g/dL (32.4-35.8); MEAN PLATELET VOLUME 6.9 fL (7.4-10.4); MONOCYTES % (AUTO) 12 % (2-9); NEUTROPHILS % (AUTO) 64 % (42-75); PLATELET COUNT 360 x10^3/uL (130-400); RED BLOOD COUNT 3.99 x10^6/uL (3.82-5.3); RED CELL DISTRIBUTION WIDTH 15.9 % (9.6-15.2)
[2020-10-03 11:07] LABS: ALANINE AMINOTRANSFERASE 22 U/L (12-78); ALBUMIN 3.3 g/dL (3.4-5.0); ANION GAP 3 mmol/L (5-15); CHLORIDE 101 mmol/L (98-107)
[2020-10-03 11:09] LABS: ALKALINE PHOSPHATASE 101 U/L (45-117); BILIRUBIN,TOTAL 0.1 mg/dL (0.2-1.0); TOTAL PROTEIN 7.1 g/dL (6.4-8.2)
[2020-10-03] MEDS: LORazepam 0.5MG TABLET PO PRN ×2 (11:16→21:35)
[2020-10-03 11:25] LABS: MD NO
[2020-10-03 13:27] VITALS: BP 117/73
[2020-10-03 19:54] VITALS: BP 122/81
[2020-10-03] MEDS: QUETIAPINE 100MG TABLET PO SCH (20:27)
[2020-10-03 20:29] VITALS: BP 149/87
[2020-10-04 00:24] VITALS: BP 93/67
[2020-10-04 07:16] VITALS: BP 160/79
[2020-10-04] MEDS: SERTRALINE 100MG TABLET PO SCH (09:00)
[2020-10-04] MEDS: TIOTROPIUM BROMIDE 18 MCG/INH INH SCH (09:00)
[2020-10-04] MEDS: FLUTICASONE/VILANTEROL 200-25MCG/INH INH SCH (09:00)
[2020-10-04] MEDS: PROPRANOLOL 20 MG TABLET PO SCH ×2 (09:58→20:31)
[2020-10-04] MEDS: FOLIC ACID 1 MG TABLET PO SCH (09:58)
[2020-10-04] MEDS: ATORVASTATIN 40 MG TABLET PO SCH (09:59)
[2020-10-04] MEDS: ASPIRIN 81 MG TABLET EC PO SCH (09:59)
[2020-10-04] MEDS: FERROUS SULFATE 325 MG TABLET PO SCH (09:59)
[2020-10-04] MEDS: LISINOPRIL 10 MG TABLET PO SCH (09:59)
[2020-10-04] MEDS: HYDROcodone/APAP 5/325 TABLET PO PRN ×2 (10:01→18:12)
[2020-10-04] MEDS: CETIRIZINE 10 MG TABLET PO SCH (10:01)
[2020-10-04] MEDS: BUSPIRONE 5 MG TABLET PO SCH ×2 (10:01→20:31)
[2020-10-04] MEDS: LORazepam 0.5MG TABLET PO PRN ×2 (11:50→19:50)
[2020-10-04 13:53] VITALS: BP 116/74
[2020-10-04] MEDS: ACETAMINOPHEN 325 MG TABLET PO PRN ×2 (14:03→20:35)
[2020-10-04 19:31] VITALS: BP 137/86
[2020-10-04] MEDS: QUETIAPINE 100MG TABLET PO SCH (20:31)
[2020-10-05 00:27] VITALS: BP 108/66
[2020-10-05 07:02] VITALS: BP 145/80
[2020-10-05] MEDS: FLUTICASONE/VILANTEROL 200-25MCG/INH INH SCH (07:46)
[2020-10-05] MEDS: TIOTROPIUM BROMIDE 18 MCG/INH INH SCH (07:46)
[2020-10-05] MEDS: ASPIRIN 81 MG TABLET EC PO SCH (09:00)
[2020-10-05] MEDS: CETIRIZINE 10 MG TABLET PO SCH (09:15)
[2020-10-05] MEDS: ATORVASTATIN 40 MG TABLET PO SCH (09:15)
[2020-10-05] MEDS: BUSPIRONE 5 MG TABLET PO SCH ×2 (09:15→21:24)
[2020-10-05] MEDS: FERROUS SULFATE 325 MG TABLET PO SCH (09:16)
[2020-10-05] MEDS: PROPRANOLOL 20 MG TABLET PO SCH ×2 (09:16→21:24)
[2020-10-05] MEDS: SERTRALINE 100MG TABLET PO SCH (09:17)
[2020-10-05] MEDS: LISINOPRIL 10 MG TABLET PO SCH (09:17)
[2020-10-05] MEDS: FOLIC ACID 1 MG TABLET PO SCH (09:19)
[2020-10-05] MEDS: LORazepam 0.5MG TABLET PO PRN ×2 (09:24→21:24)
[2020-10-05] MEDS: HYDROcodone/APAP 5/325 TABLET PO PRN ×2 (09:24→18:02)
[2020-10-05] MEDS: ACETAMINOPHEN 325 MG TABLET PO PRN (12:33)
[2020-10-05 15:06] VITALS: BP 113/74
[2020-10-05 20:12] VITALS: BP 130/77
[2020-10-05] MEDS: QUETIAPINE 100MG TABLET PO SCH (21:25)
[2020-10-06 03:14] VITALS: BP 121/75
[2020-10-06 07:06] VITALS: BP 123/74
[2020-10-06] MEDS: ASPIRIN 81 MG TABLET EC PO SCH (09:00)
[2020-10-06] MEDS: SERTRALINE 100MG TABLET PO SCH (09:00)
[2020-10-06] MEDS: CETIRIZINE 10 MG TABLET PO SCH (10:23)
[2020-10-06] MEDS: LISINOPRIL 10 MG TABLET PO SCH (10:23)
[2020-10-06] MEDS: ATORVASTATIN 40 MG TABLET PO SCH (10:24)
[2020-10-06] MEDS: FERROUS SULFATE 325 MG TABLET PO SCH (10:24)
[2020-10-06] MEDS: LORazepam 0.5MG TABLET PO PRN ×2 (10:24→19:55)
[2020-10-06] MEDS: PROPRANOLOL 20 MG TABLET PO SCH ×2 (10:24→19:55)
[2020-10-06] MEDS: FOLIC ACID 1 MG TABLET PO SCH (10:24)
[2020-10-06] MEDS: BUSPIRONE 5 MG TABLET PO SCH ×2 (10:25→19:55)
[2020-10-06] MEDS: HYDROcodone/APAP 5/325 TABLET PO PRN ×2 (10:26→19:55)
[2020-10-06] MEDS: ALBUTEROL HFA 90 MCG/SPRAY INH PRN (11:30)
[2020-10-06] MEDS: TIOTROPIUM BROMIDE 18 MCG/INH INH SCH (11:45)
[2020-10-06] MEDS: FLUTICASONE/VILANTEROL 200-25MCG/INH INH SCH (11:45)
[2020-10-06 12:56] VITALS: BP 138/83
[2020-10-06 19:00] VITALS: BP 135/81
[2020-10-06] MEDS: ALBUTEROL HFA 90 MCG/SPRAY INH SCH (19:05)
[2020-10-06] MEDS: DOXYCYCLINE 100MG TABLET PO SCH (19:55)
[2020-10-06] MEDS: QUETIAPINE 100MG TABLET PO SCH (19:57)
[2020-10-07 00:52] VITALS: BP 104/66
[2020-10-07 07:15] VITALS: BP 123/75
[2020-10-07] MEDS: TIOTROPIUM BROMIDE 18 MCG/INH INH SCH (07:33)
[2020-10-07] MEDS: ALBUTEROL HFA 90 MCG/SPRAY INH SCH ×2 (07:33→20:15)
[2020-10-07] MEDS: FLUTICASONE/VILANTEROL 200-25MCG/INH INH SCH (07:33)
[2020-10-07] MEDS: CETIRIZINE 10 MG TABLET PO SCH (08:18)
[2020-10-07] MEDS: DOXYCYCLINE 100MG TABLET PO SCH ×2 (08:18→19:47)
[2020-10-07] MEDS: FOLIC ACID 1 MG TABLET PO SCH (08:18)
[2020-10-07] MEDS: ATORVASTATIN 40 MG TABLET PO SCH (08:18)
[2020-10-07] MEDS: FERROUS SULFATE 325 MG TABLET PO SCH (08:18)
[2020-10-07] MEDS: LISINOPRIL 10 MG TABLET PO SCH (08:19)
[2020-10-07] MEDS: PROPRANOLOL 20 MG TABLET PO SCH ×2 (08:19→19:47)
[2020-10-07] MEDS: BUSPIRONE 5 MG TABLET PO SCH ×2 (08:19→19:47)
[2020-10-07] MEDS: ASPIRIN 81 MG TABLET EC PO SCH (08:19)
[2020-10-07] MEDS: SERTRALINE 100MG TABLET PO SCH (08:20)
[2020-10-07] MEDS: LORazepam 0.5MG TABLET PO PRN ×2 (08:28→17:15)
[2020-10-07] MEDS: HYDROcodone/APAP 5/325 TABLET PO PRN ×2 (08:29→17:18)
[2020-10-07 12:34] VITALS: BP 137/86
[2020-10-07 19:10] VITALS: BP 159/90
[2020-10-07] MEDS: ACETAMINOPHEN 325 MG TABLET PO PRN (19:47)
[2020-10-07] MEDS: QUETIAPINE 100MG TABLET PO SCH (19:47)
[2020-10-08 00:40] VITALS: BP 106/68
[2020-10-08 07:05] VITALS: BP 144/88
[2020-10-08] MEDS: FLUTICASONE/VILANTEROL 200-25MCG/INH INH SCH (07:45)
[2020-10-08] MEDS: ALBUTEROL HFA 90 MCG/SPRAY INH SCH ×2 (07:45→20:18)
[2020-10-08] MEDS: TIOTROPIUM BROMIDE 18 MCG/INH INH SCH (07:45)
[2020-10-08] MEDS: FERROUS SULFATE 325 MG TABLET PO SCH (08:52)
[2020-10-08] MEDS: BUSPIRONE 5 MG TABLET PO SCH ×2 (08:52→20:58)
[2020-10-08] MEDS: FOLIC ACID 1 MG TABLET PO SCH (08:52)
[2020-10-08] MEDS: DOXYCYCLINE 100MG TABLET PO SCH ×2 (08:52→20:58)
[2020-10-08] MEDS: ATORVASTATIN 40 MG TABLET PO SCH (08:52)
[2020-10-08] MEDS: HYDROcodone/APAP 5/325 TABLET PO PRN (08:53)
[2020-10-08] MEDS: ASPIRIN 81 MG TABLET EC PO SCH (08:53)
[2020-10-08] MEDS: CETIRIZINE 10 MG TABLET PO SCH (08:53)
[2020-10-08] MEDS: SERTRALINE 100MG TABLET PO SCH (08:53)
[2020-10-08] MEDS: LISINOPRIL 10 MG TABLET PO SCH (08:53)
[2020-10-08] MEDS: PROPRANOLOL 20 MG TABLET PO SCH ×2 (08:53→20:58)
[2020-10-08] MEDS: LORazepam 0.5MG TABLET PO PRN ×2 (08:55→21:04)
[2020-10-08 13:43] VITALS: BP 148/88
[2020-10-08] MEDS: ACETAMINOPHEN 325 MG TABLET PO PRN ×2 (15:03→20:58)
[2020-10-08 19:41] VITALS: BP 145/86
[2020-10-08] MEDS: QUETIAPINE 100MG TABLET PO SCH (20:58)
[2020-10-09 01:47] VITALS: BP 123/75
[2020-10-09 07:11] VITALS: BP 156/97
[2020-10-09] MEDS: SERTRALINE 100MG TABLET PO SCH (08:14)
[2020-10-09] MEDS: HYDROcodone/APAP 5/325 TABLET PO PRN ×2 (08:15→21:36)
[2020-10-09] MEDS: LISINOPRIL 10 MG TABLET PO SCH (08:15)
[2020-10-09] MEDS: ATORVASTATIN 40 MG TABLET PO SCH (08:15)
[2020-10-09] MEDS: CETIRIZINE 10 MG TABLET PO SCH (08:15)
[2020-10-09] MEDS: FERROUS SULFATE 325 MG TABLET PO SCH (08:15)
[2020-10-09] MEDS: BUSPIRONE 5 MG TABLET PO SCH ×2 (08:16→20:12)
[2020-10-09] MEDS: LORazepam 0.5MG TABLET PO PRN ×2 (08:16→20:11)
[2020-10-09] MEDS: PROPRANOLOL 20 MG TABLET PO SCH ×2 (08:16→20:12)
[2020-10-09] MEDS: DOXYCYCLINE 100MG TABLET PO SCH ×2 (08:16→20:12)
[2020-10-09] MEDS: ASPIRIN 81 MG TABLET EC PO SCH (08:16)
[2020-10-09] MEDS: FOLIC ACID 1 MG TABLET PO SCH (08:16)
[2020-10-09] MEDS: TIOTROPIUM BROMIDE 18 MCG/INH INH SCH (08:53)
[2020-10-09] MEDS: FLUTICASONE/VILANTEROL 200-25MCG/INH INH SCH (08:53)
[2020-10-09] MEDS: ALBUTEROL HFA 90 MCG/SPRAY INH SCH ×2 (08:53→21:00)
[2020-10-09] MEDS ORDERED: DOXY-162 PO (12:48)
[2020-10-09] MEDS ORDERED: HYDROcodone/APAP 5/325 TABLET PO ONE (13:00)
[2020-10-09 13:39] VITALS: BP 146/90
[2020-10-09] MEDS: ACETAMINOPHEN 325 MG TABLET PO PRN (16:21)
[2020-10-09] MEDS: QUETIAPINE 100MG TABLET PO SCH (20:12)
[2020-10-09 20:36] VITALS: BP 146/87
[2020-10-10 00:32] VITALS: BP 106/68
[2020-10-10 07:18] VITALS: BP 151/82
[2020-10-10] MEDS: DOXYCYCLINE 100MG TABLET PO SCH ×2 (08:29→21:06)
[2020-10-10] MEDS: HYDROcodone/APAP 5/325 TABLET PO PRN ×2 (08:29→09:30)
[2020-10-10] MEDS: BUSPIRONE 5 MG TABLET PO SCH ×2 (08:30→21:06)
[2020-10-10] MEDS: PROPRANOLOL 20 MG TABLET PO SCH ×2 (08:30→21:06)
[2020-10-10] MEDS: LISINOPRIL 10 MG TABLET PO SCH (08:30)
[2020-10-10] MEDS: FOLIC ACID 1 MG TABLET PO SCH (08:30)
[2020-10-10] MEDS: FERROUS SULFATE 325 MG TABLET PO SCH (08:32)
[2020-10-10] MEDS: ATORVASTATIN 40 MG TABLET PO SCH (08:32)
[2020-10-10] MEDS: ASPIRIN 81 MG TABLET EC PO SCH (08:32)
[2020-10-10] MEDS: CETIRIZINE 10 MG TABLET PO SCH (08:32)
[2020-10-10] MEDS: SERTRALINE 100MG TABLET PO SCH (08:33)
[2020-10-10] MEDS: ALBUTEROL HFA 90 MCG/SPRAY INH SCH ×2 (08:36→21:00)
[2020-10-10] MEDS: TIOTROPIUM BROMIDE 18 MCG/INH INH SCH (08:36)
[2020-10-10] MEDS: FLUTICASONE/VILANTEROL 200-25MCG/INH INH SCH (08:36)
[2020-10-10 12:26] VITALS: BP 143/91
[2020-10-10] MEDS: ACETAMINOPHEN 325 MG TABLET PO PRN ×2 (13:18→17:35)
[2020-10-10] MEDS: LORazepam 0.5MG TABLET PO PRN ×2 (13:20→17:36)
[2020-10-10 19:13] VITALS: BP 145/88
[2020-10-10] MEDS: QUETIAPINE 100MG TABLET PO SCH (21:06)
[2020-10-11 00:59] VITALS: BP 117/73
[2020-10-11] MEDS: ALBUTEROL HFA 90 MCG/SPRAY INH SCH (07:15)
[2020-10-11] MEDS: TIOTROPIUM BROMIDE 18 MCG/INH INH SCH (07:15)
[2020-10-11] MEDS: FLUTICASONE/VILANTEROL 200-25MCG/INH INH SCH (07:15)
[2020-10-11] MEDS: FERROUS SULFATE 325 MG TABLET PO SCH (07:20)
[2020-10-11] MEDS: LISINOPRIL 10 MG TABLET PO SCH (07:20)
[2020-10-11] MEDS: ATORVASTATIN 40 MG TABLET PO SCH (07:20)
[2020-10-11 07:21] VITALS: BP 152/95
[2020-10-11] MEDS: PROPRANOLOL 20 MG TABLET PO SCH (07:21)
[2020-10-11] MEDS: BUSPIRONE 5 MG TABLET PO SCH (07:21)
[2020-10-11] MEDS: DOXYCYCLINE 100MG TABLET PO SCH (07:21)
[2020-10-11] MEDS: ASPIRIN 81 MG TABLET EC PO SCH (07:21)
[2020-10-11] MEDS: CETIRIZINE 10 MG TABLET PO SCH (07:21)
[2020-10-11] MEDS: LORazepam 0.5MG TABLET PO PRN ×3 (07:21→07:47)
[2020-10-11] MEDS: HYDROcodone/APAP 5/325 TABLET PO PRN (07:22)
[2020-10-11] MEDS: SERTRALINE 100MG TABLET PO SCH (07:22)
[2020-10-11] MEDS ORDERED: LORazepam 0.5MG TABLET PO ONE (08:15)
== END 2020-10-11 10:13 | DRG 189 ==
LOC: ED 20:00 → INTOOBSV 20:15 → OBSVTOIN 20:15 → EDIP 20:15 → 4NW 21:25 → 5SO 09-25 14:10 → 3N 09-26 16:26
PROVIDERS: ADMIT Family Medicine; ATTEND Internal Medicine
DX: J96.21 Acute and chronic respiratory failure with hypoxia (principal); L03.113 Cellulitis of right upper limb; F33.2 Major depressive disorder, recurrent severe without psychotic features; R45.851 Suicidal ideations; M48.54XA Collapsed vertebra, not elsewhere classified, thoracic region, initial encounter for fracture; Z20.822 Contact with and (suspected) exposure to COVID-19; D64.9 Anemia, unspecified; E78.5 Hyperlipidemia, unspecified; F41.8 Other specified anxiety disorders; F43.21 Adjustment disorder with depressed mood; G43.909 Migraine, unspecified, not intractable, without status migrainosus; G89.29 Other chronic pain; M50.321 Other cervical disc degeneration at C4-C5 level; I10 Essential (primary) hypertension; J44.9 Chronic obstructive pulmonary disease, unspecified; M94.0 Chondrocostal junction syndrome [Tietze]; Z59.0 Homelessness; Z63.8 Other specified problems related to primary support group; Z76.5 Malingerer [conscious simulation]; Z87.01 Personal history of pneumonia (recurrent); Z87.891 Personal history of nicotine dependence; Z99.81 Dependence on supplemental oxygen
CPT/HCPCS: 36415; 71045; 71275; 72050; 72110; 78452; 80053; 84484; 85025; 85379; 93005; 93017; 93306; 93356; 94060; 94640; 99285; G0378; J2785; Q9967; A9502; J2270; U0003